=== PATIENT | male | born 1990 | race Caucasian/White ===

== ENCOUNTER 2018-10-10 21:29 | Emergency (ER) | payer OTHER ==
[~2018-10-10] VITALS: Ht 185.4 cm; Wt 102.1 kg
== END 2018-10-11 00:15 | disposition home or self-care (01) ==
LOC: ED 21:29
DX: L25.0 Unspecified contact dermatitis due to cosmetics (principal); F17.200 Nicotine dependence, unspecified, uncomplicated
CPT/HCPCS: 99282; Q0163

== ENCOUNTER 2019-01-29 10:39 | Emergency (ER) | payer SELFPAY ==
[~2019-01-29] VITALS: Ht 185.4 cm; Wt 97.5 kg
[2019-01-29] MEDS ORDERED: CYCLOBENZAPRINE10 MG PO (12:20)
== END 2019-01-29 12:36 | disposition home or self-care (01) ==
LOC: ED 10:39
DX: S29.012A Strain of muscle and tendon of back wall of thorax, initial encounter (principal); S39.012A Strain of muscle, fascia and tendon of lower back, initial encounter; X50.9XXA Other and unspecified overexertion or strenuous movements or postures, initial encounter; F17.200 Nicotine dependence, unspecified, uncomplicated
CPT/HCPCS: 99283

== ENCOUNTER 2019-06-14 13:50 | Emergency (ER) | payer SELFPAY ==
[~2019-06-14] VITALS: Ht 185.4 cm; Wt 104.3 kg
[~2019-06-14 13:50] MED LIST: CYCLOBENZAPRINE10 MG PO
[2019-06-14] MEDS ORDERED: CYCLOBENZAPRINE10 MG PO (16:17)
== END 2019-06-14 16:42 | disposition home or self-care (01) ==
LOC: ED 13:50
DX: M54.5 Low back pain (principal); F17.200 Nicotine dependence, unspecified, uncomplicated
CPT/HCPCS: 80053; 81001; 83690; 85025; 99283; A9270

== ENCOUNTER 2019-12-02 07:56 | Emergency (ER) | payer OTHER ==
[~2019-12-02] VITALS: Ht 185.4 cm; Wt 104.3 kg
[2019-12-03] MEDS ORDERED: ZYPREXA10 MG PO (10:45)
--- NOTE | 2019-12-04 13:37 | PATH ---
[facility] [address] [place], [place] [address] Signed ORDERING PHYSICIAN: Americo Lowry MD PATIENT NAME: DENNIS WISE GENDER: M : 1990 SPECIMEN(S): No Source Given MOLECULAR PATHOLOGY RESULTS: SARS-CoV-2 Not Detected ADDITIONAL NOTES.: The [employer] Fusion SARS-CoV-2 Assay is a multiplex real-time PCR (RT-PCR) in vitro diagnostic test intended for the qualitative detection of RNA from SARS-CoV-2 from individuals who meet COVID-19 clinical and/or epidemiological criteria. In general, SARS-CoV-2 RNA can be detected during the acute phase of infection. Positive results indicate the presence of SARS-CoV-2 RNA. Clinical correlation with patient history and other diagnostic information is necessary to determine patient infection status. Positive results do not rule out bacterial infection or co-infection with other viruses. Negative results do not preclude SARS-CoV-2 infection and should not be used as the sole basis for patient management decisions. Negative results must be combined with other clinical observations, patient history, and epidemiological information. The [place] Fusion SARS-CoV-2 Assay is not yet approved or cleared by the [place] FDA. When there are no FDA-approved or cleared tests available, and other criteria are met, FDA can make tests available under an emergency access mechanism called an Emergency Use Authorization (EUA). The EUA for this test is supported by the [place] of Health and Human Service's (HHS's) declaration that circumstances exist to justify the emergency use of in vitro diagnostics for the detection and/or diagnosis of the virus that causes COVID-19. This EUA will remain in effect for the duration of the COVID-19 declaration justifying emergency of IVDs, unless it is terminated or revoked by FDA, after which the test may no longer be used. The [place] Fusion SARS-CoV-2 Assay is for use only under EUA in US laboratories certified under the Clinical Laboratory Improvement Amendments of 1988 (CLIA) to perform high complexity tests. [facility] is certified under CLIA to perform high complexity PATIENT NAME: DENNIS WISE PATHOLOGY DATE OF : [birth year] REPORT #: [id number] PHYSICIAN: INOCENTE TY PCP: NO PRIMARY CARE PHYSICIAN REPORT IS CONFIDENTIAL AND NOT TO BE RELEASED WITHOUT AUTHORIZATION [address] [address] Signed clinical laboratory testing. PERFORMING LABORATORY.: Molecular testing was performed by [facility] [address] [place], [place] [address], [place] [address] (President Ceo & Founder: Roderick Huang D.O.; CLIA#: [id number]) Diagnostician: System Interface Pathologist Electronically Signed 12/04/2019 Copies: ~ PATIENT NAME: DENNIS WISE PATHOLOGY DATE OF : [birth year] REPORT #: [id number] PHYSICIAN: INOCENTE TY PCP: NO PRIMARY CARE PHYSICIAN REPORT IS CONFIDENTIAL AND NOT TO BE RELEASED WITHOUT AUTHORIZATION
== END 2019-12-03 11:45 | disposition short-term general hospital (02) ==
LOC: ED 07:56
DX: F20.9 Schizophrenia, unspecified (principal); R45.851 Suicidal ideations; F17.200 Nicotine dependence, unspecified, uncomplicated
CPT/HCPCS: 80053; 80176; 81001; 84443; 85025; 96372; 99285; G0480

== ENCOUNTER 2020-05-17 04:35 | Emergency (ER) | payer OTHER ==
[~2020-05-17] VITALS: Ht 185.4 cm; Wt 104.3 kg
[~2020-05-17 04:35] MED LIST changes: +ZYPREXA10 MG PO
[2020-05-17] MEDS ORDERED: CLOZAPINE100 MG PO (05:17)
[2020-05-17] MEDS ORDERED: CYCLOBENZAPRINE10 MG PO (05:18)
--- NOTE | 2020-05-17 07:51 | EKG ---
[facility] [address] [facility] [place] [address] Signed Normal sinus rhythm Normal ECG No previous ECGs available Confirmed by HARMONY KILPATRICK MD ([id number]) on 05/17/2020 7:51:51 AM Electronically Signed By: HARMONY KILPATRICK MD 05/17/20 075 PATIENT NAME: DENNIS WISE Electrocardiogram DATE OF : [birth year] PHYSICIAN: HARMONY KILPATRICK MD REPORT #: [id number] REPORT IS CONFIDENTIAL AND NOT TO BE RELEASED WITHOUT AUTHORIZATION
== END 2020-05-17 19:53 ==
LOC: ED 04:35
DX: T42.4X2A Poisoning by benzodiazepines, intentional self-harm, initial encounter (principal); T48.1X2A Poisoning by skeletal muscle relaxants [neuromuscular blocking agents], intentional self-harm, initial encounter; F17.200 Nicotine dependence, unspecified, uncomplicated; Z79.899 Other long term (current) drug therapy; Z20.822 Contact with and (suspected) exposure to COVID-19
CPT/HCPCS: 80053; 80176; 81001; 83690; 84443; 85025; 93005; 93010; 99285-25; C9803; G0480; U0003

== ENCOUNTER 2022-10-16 01:25 | Emergency (ER) | payer OTHER ==
[~2022-10-16] VITALS: Ht 185.4 cm; Wt 101.0 kg
[~2022-10-16 01:25] MED LIST changes: +CLOZAPINE100 MG PO
[2022-10-16 09:46] VITALS: BP 121/91
== END 2022-10-16 09:46 | disposition home or self-care (01) ==
LOC: ED 01:25
DX: F20.9 Schizophrenia, unspecified (principal); F43.10 Post-traumatic stress disorder, unspecified; F17.200 Nicotine dependence, unspecified, uncomplicated; Z20.822 Contact with and (suspected) exposure to COVID-19
CPT/HCPCS: 36415; 80053; 84443; 85025; 87502; 96372; 99285; G0480; J3486; U0003

== ENCOUNTER 2023-01-29 23:04 | Emergency (ER) | payer OTHER ==
[~2023-01-29] VITALS: Ht 185.4 cm; Wt 104.3 kg
[2023-01-29 23:19] LABS: BASOPHILS 0.6 % (0-2); EOSINOPHILS 4.7 % (0-6); LYMPHOCYTES 43.8 % (24-44); MCH 33.1 (27-36); MCHC 34.9 g/dl (30-36); MCV 94.8 fl (81-99); MONOCYTES 5.1 % (0-12); NEUTROPHILS 45.8 % (39-80); PLATELET COUNT 304 K/uL (140-440); RBC 4.53 M/ul (4.3-5.7); RDW 12.6 (10.5-15.0)
[2023-01-29 23:30] LABS: PARTIAL THROMBOPLASTIN TIME 25.2 Sec (22.9-41.3); PROTIME 12.7 Sec (11.2-14.2)
[2023-01-29 23:34] LABS: ALBUMIN 4.2 g/dL (3.4-5.0); ALBUMIN/GLOBULIN RATIO 1.31 (1.1-2.4); ANION GAP 16.4 (7-21); BILIRUBIN, TOTAL 0.5 ng/dL (0.2-1.0); BUN/CREATININE RATIO 11.92 (6.0-28.6); CALCIUM 8.8 mg/dL (8.5-10.1); CREATININE, SERUM 1.09 mg/dL (0.70-1.30); POTASSIUM 3.4 mmol/L (3.5-5.1); PROTEIN, TOTAL 7.4 g/dL (6.4-8.2)
[2023-01-29 23:55] LABS: ABO A; ANTIBODY SCREEN NEGATIVE; RH POSITIVE
[2023-01-30 00:35] VITALS: BP 125/80
== END 2023-01-30 00:30 | disposition home or self-care (01) ==
LOC: ED 23:04
PROVIDERS: Emergency Medicine
DX: K62.5 Hemorrhage of anus and rectum (principal); F17.200 Nicotine dependence, unspecified, uncomplicated
CPT/HCPCS: 36415; 80053; 85025; 85610; 85730; 86850; 86900; 86901; 99283

== ENCOUNTER 2024-05-05 23:09 | Emergency (ER) | payer MEDICARE, OTHER ==
[~2024-05-05] VITALS: Ht 185.4 cm; Wt 100.0 kg
[2024-05-05] MEDS ORDERED: ondansetron HCL 4 MG/2 ML VIAL IV ONE (23:30)
[2024-05-05] MEDS ORDERED: KETOROLAC TROMETHAMINE 30 MG/ML VIAL IV ONE (23:30)
[2024-05-05] MEDS ORDERED: SODIUM CHLORIDE 0.9% 1,000 ML IV ONE (23:30)
[2024-05-05] MEDS ORDERED: BUSPIRONE HCL15 MG PO (23:35)
[2024-05-05] MEDS ORDERED: PALIPERIDONE ER6 MG PO (23:35)
[2024-05-05 23:57] LABS: BASOPHILS 0.6 % (0-2); EOSINOPHILS 2.8 % (0-6); HEMATOCRIT 48.3 % (35.0-50.0); HEMOGLOBIN 16.8 g/dL (12.0-18.0); LYMPHOCYTES 35.7 % (24-44); MCH 33.1 (27-36); MCHC 34.8 g/dl (30-36); MCV 95.2 fl (81-99); MONOCYTES 9.1 % (0-12); NEUTROPHILS 51.8 % (39-80); PLATELET COUNT 340 K/uL (140-440); RBC 5.07 M/ul (4.3-5.7); RDW 12.5 (10.5-15.0)
[2024-05-06 00:14] LABS: ALBUMIN 4.3 g/dL (3.4-5.0); ALBUMIN/GLOBULIN RATIO 1.16 (1.1-2.4); ANION GAP 15.2 (7-21); BILIRUBIN, TOTAL 0.6 ng/dL (0.2-1.0); BUN/CREATININE RATIO 11.81 (6.0-28.6); CALCIUM 8.9 mg/dL (8.5-10.1); CREATININE, SERUM 1.1 mg/dL (0.70-1.30); POTASSIUM 4.2 mmol/L (3.5-5.1)
[2024-05-06] MEDS ORDERED: PROMETHAZINE HC25 M1 PO (01:12)
[2024-05-06] MEDS ORDERED: NICOTINE POLACRILEX 4 MG LOZENGE BUCCAL ONE (01:15)
[2024-05-06] MEDS ORDERED: CYCLOBENZAPRINE10 MG PO (01:32)
[2024-05-06] MEDS ORDERED: KETOROLAC TROME10 MG PO (01:32)
[2024-05-06] MEDS ORDERED: ANUSOL-HC25 MG PR (01:32)
[2024-05-06 01:58] VITALS: BP 117/85
== END 2024-05-06 02:00 | disposition home or self-care (01) ==
LOC: ED 23:09
PROVIDERS: Family Medicine
DX: K85.90 Acute pancreatitis without necrosis or infection, unspecified (principal); K64.9 Unspecified hemorrhoids; F17.200 Nicotine dependence, unspecified, uncomplicated; Z79.899 Other long term (current) drug therapy
CPT/HCPCS: 36415; 74177; 80053; 83690; 84478; 85025; 96375; 99284-25; J1885; J2405; J7030; Q9967

== ENCOUNTER 2024-10-07 16:17 | Emergency (ER) | payer MEDICARE, OTHER ==
[~2024-10-07] VITALS: Ht 185.4 cm; Wt 100.5 kg
[~2024-10-07 16:17] MED LIST changes: +ANUSOL-HC25 MG PR; +BUSPIRONE HCL15 MG PO; +KETOROLAC TROME10 MG PO; +PALIPERIDONE ER6 MG PO; +PROMETHAZINE HC25 M1 PO
[2024-10-07] MEDS ORDERED: ondansetron HCL 4 MG/2 ML VIAL IV ONE (16:30)
[2024-10-07 16:44] LABS: BASOPHILS 0.3 % (0.2-1.2); EOSINOPHILS 0.8 % (0.8-7.0); HEMATOCRIT 42.9 % (40.1-51.0); HEMOGLOBIN 15.4 g/dL (13.7-17.5); LYMPHOCYTES 13.1 % (21.8-53.1); MCH 32.6 PG (25.7-32.2); MCHC 35.9 g/dL (32.3-36.5); MCV 90.7 fL (79.0-92.2); MONOCYTES 4.4 % (5.3-12.2); PLATELET COUNT 327 K/uL (163-337); RBC 4.73 M/uL (4.63-6.08)
[2024-10-07] MEDS ORDERED: INVEGA SUS117 MG/0.7 IM (16:45)
[2024-10-07 16:59] LABS: ALBUMIN 4.3 g/dL (3.4-5.0); ALBUMIN/GLOBULIN RATIO 1.3 (1.1-2.4); ANION GAP 14.5 (7-21); BILIRUBIN, TOTAL 0.5 mg/dL (0.2-1.0); BUN/CREATININE RATIO 12.9 (6.0-28.6); CALCIUM 9.6 mg/dL (8.5-10.1); CREATININE, SERUM 1.24 mg/dL (0.70-1.30); POTASSIUM 3.5 mmol/L (3.5-5.1); PROTEIN, TOTAL 7.6 g/dL (6.4-8.2)
[2024-10-07] MEDS ORDERED: LORazepam 1 MG TAB PO ONE (17:15)
[2024-10-07] MEDS ORDERED: OLANZapine 10 MG TABDIS PO ONE (18:00)
[2024-10-07 18:28] LABS: BILIRUBIN, URINE NEGATIVE (negative); BLOOD/HGB, URINE TRACE-I (Negative); KETONE, URINE NEGATIVE (Negative); LEUK ESTERASE, URINE SMALL (negative); NITRITE, URINE NEGATIVE (negative); PH, URINE 5.5 (5-7)
[2024-10-07 18:35] LABS: BACTERIA, URINE NONE SEEN /hpf (negative); CASTS, URINE NONE SEEN \\lpf; COLLECTION TYPE, URINE CLEAN CATCH; CRYSTALS, URINE NONE SEEN (0-1+); EPITHELIAL CELLS, URINE 0 /lpf (0-1+); RED BLOOD CELLS, URINE 0-1 /hpf (0-5); REFLEX CULTURE, URINE No (No)
[2024-10-07 19:08] LABS: BARBITURATES, URINE NEGATIVE (NEGATIVE)
[2024-10-07 19:22] LABS: AMPHETAMINES, URINE NEGATIVE (NEGATIVE); BENZODIAZEPINE, URINE NEGATIVE (NEGATIVE); BUPRENORPHINE, URINE NEGATIVE (NEGATIVE); CANNABINOID, URINE POSITIVE (NEGATIVE); COCAINE, URINE NEGATIVE (NEGATIVE); ECSTASY, URINE NEGATIVE (NEGATIVE); FENTANYL, URINE NEGATIVE (NEGATIVE); METHADONE, URINE NEGATIVE (NEGATIVE); OPIATES, URINE NEGATIVE (NEGATIVE); OXYCODONE, URINE NEGATIVE (NEGATIVE); PHENCYCLIDINE, URINE NEGATIVE (NEGATIVE)
[2024-10-07 19:26] LABS: ACETAMINOPHEN 0 ug/mL (10-30); ALCOHOL, MEDICAL <3 ng/dL (<3); SALICYLATE 2.3 mg/dL (2.8-20.0); TSH, 3RD GENERATION 0.863 uIU/mL (0.358-3.740)
[2024-10-07 22:05] VITALS: BP 112/68
[2024-10-08] MEDS ORDERED: SEROQUEL50 MG PO (03:13)
== END 2024-10-07 22:05 | disposition home or self-care (01) ==
LOC: ED 16:17
PROVIDERS: Emergency Medicine
DX: F29 Unspecified psychosis not due to a substance or known physiological condition (principal); F17.200 Nicotine dependence, unspecified, uncomplicated; Z79.899 Other long term (current) drug therapy
CPT/HCPCS: 36415; 80053; 80307; 81001; 83690; 84443; 85025; 99284; A9270; A9270-GY; G0480

== ENCOUNTER 2024-12-16 18:31 | Emergency (ER) | payer MEDICARE, OTHER ==
[~2024-12-16] VITALS: Ht 185.4 cm; Wt 113.8 kg
[~2024-12-16 18:31] MED LIST changes: +INVEGA SUS117 MG/0.7 IM; +SEROQUEL50 MG PO
[2024-12-16] MEDS ORDERED: ASPIRIN 81 MG CHEW PO ONE (18:45)
[2024-12-16] MEDS ORDERED: NITROGLYCERIN 0.4 MG SUBL SL PRN (18:45)
[2024-12-16 18:46] LABS: BASOPHILS 0.3 % (0.2-1.2); EOSINOPHILS 3.3 % (0.8-7.0); LYMPHOCYTES 40.8 % (21.8-53.1); MCH 32.3 PG (25.7-32.2); MCHC 35.2 g/dL (32.3-36.5); MCV 91.9 fL (79.0-92.2); MONOCYTES 8.0 % (5.3-12.2); NEUTROPHILS 47.2 % (34.0-67.9); RBC 4.70 M/uL (4.63-6.08)
[2024-12-16 19:05] LABS: ALT (SGPT) 38 U/L (14-59); AST (SGOT) 19 U/L (15-37); GLOMERULAR FILTRATION RATE,EST 89 mL/min (>60); PROTEIN, TOTAL 7.1 g/dL (6.4-8.2); UREA NITROGEN 12 mg/dL (7-18)
[2024-12-16] MEDS ORDERED: CYCLOBENZAPRINE HCL 10 MG HOME.PACK PO ONE (21:30)
[2024-12-16] MEDS ORDERED: LIDOCAINE & ANTACID 35 ML BTL PO ONE (21:30)
[2024-12-16 21:46] VITALS: BP 115/79
--- NOTE | 2024-12-18 22:13 | EKG ---
[facility] [address] [place] [address] Signed Normal sinus rhythm with sinus arrhythmia Normal ECG When compared with ECG of 17-MAY-2020 04:55, No significant change was found Confirmed by Joe Delacruz MD () on 12/18/2024 10:13:15 PM Electronically Signed By: JOE DELACRUZ MD 12/18/24 2213 PATIENT NAME: FRANDYDENNIS Electrocardiogram DATE OF : [birth year] PHYSICIAN: JOE DELACRUZ MD REPORT #: [id number] REPORT IS CONFIDENTIAL AND NOT TO BE RELEASED WITHOUT AUTHORIZATION
== END 2024-12-16 21:47 | disposition home or self-care (01) ==
LOC: ED 18:31
PROVIDERS: Emergency Medicine
DX: R07.89 Other chest pain (principal); F17.200 Nicotine dependence, unspecified, uncomplicated; Z79.899 Other long term (current) drug therapy
CPT/HCPCS: 36415; 71045; 80053; 83690; 83735; 84484; 85025; 93005; 93010; 99285-25; A9270